=== PATIENT | female | born 1985 ===

== ENCOUNTER 2017-04-25 17:32 | Emergency (ER) | payer OTHER ==
[2017-04-25 17:44] VITALS: BMI 29.0
[2017-04-25 17:49] VITALS: TEMP 98.6
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
[2017-04-25 20:48] VITALS: BP 113/70; PULSE 70; RESP 16; O2SAT 100
--- NOTE | 2017-04-26 08:33 | RAD ---
HISTORY: COMPARISON: No prior. TECHNIQUE: Chest PA and lateral FINDINGS: LINES AND TUBES: None. LUNG AND PLEURA: The lungs are well inflated and clear. HEART AND MEDIASTINUM: The heart is not enlarged. The hilar and mediastinal contours are within normal limits. SKELETAL STRUCTURES: The bony structures are within normal limits for the patient's age. VISUALIZED UPPER ABDOMEN: Normal. OTHER FINDINGS: None. IMPRESSION: No acute findings.
--- NOTE | 2017-04-26 19:32 | CARD ---
APPROVED REPORT EKG Measurement Heart [id number] <Conclusion> Normal sinus rhythm Normal ECG
== END 2017-04-25 20:47 | disposition home or self-care (01) ==
LOC: ED 17:32
DX: S20.219A Contusion of unspecified front wall of thorax, initial encounter (principal); S16.1XXA Strain of muscle, fascia and tendon at neck level, initial encounter; S39.012A Strain of muscle, fascia and tendon of lower back, initial encounter; V43.52XA Car driver injured in collision with other type car in traffic accident, initial encounter; Y92.410 Unspecified street and highway as the place of occurrence of the external cause